=== PATIENT | male | born 1985 | race Two or more races ===

== ENCOUNTER 2018-04-13 20:09 | Inpatient (IN) | payer SELFPAY ==
[~2018-04-13] VITALS: Ht 172.7 cm; Wt 66.8 kg
[2018-04-13 20:53] LABS: BILIRUBIN,URINE NEGATIVE (NEG); CLARITY,URINE CLEAR; COLOR,URINE YELLOW; NITRITE,URINE NEGATIVE (NEG); PROTEIN,URINE NEGATIVE (NEG-TRACE)
[2018-04-13 20:54] LABS: BASO % 0 % (0-3); EOS # 0.1 x10^3/uL (0.0-0.7); EOS % 2 % (0-3); HEMATOCRIT 45.2 % (39.0-53.0); HEMOGLOBIN 15.4 g/dL (13.0-17.5); LYMPH # 2.1 x10^3/uL (1.0-4.8); LYMPH % 36 % (24-48); MEAN CORPUSCULAR HEMOGLOBIN 29 pg (25-35); MEAN CORPUSCULAR HGB CONC 34 g/dL (31-37); MEAN CORPUSCULAR VOLUME 84 fL (79-100); MONO % 1 % (0-9); NEUT # 3.6 x10^3uL (1.8-7.7); NEUT % 62 % (31-73); PLATELET COUNT 234 x10^3/uL (140-400); RED BLOOD COUNT 5.36 x10^6/uL (4.30-5.70); RED CELL DISTRIBUTION WIDTH 14.5 % (11.5-14.5); WHITE BLOOD COUNT 5.8 x10^3/uL (4.0-11.0)
[2018-04-13 20:59] LABS: CALCIUM 9.6 mg/dL (8.5-10.1); GFR 86.6; POTASSIUM 4.1 mmol/L (3.5-5.1)
[2018-04-13] MEDS ORDERED: IV NORMAL SALINE 1000ML BAG 1,000 ML IV ONE (21:00)
--- NOTE | 2018-04-13 21:00 | PHYS DOC ---
Past Medical History Past Medical History: No Pertinent History Alcohol Use: Occasionally Drug Use: None Adult General Chief Complaint Chief Complaint: ABDOMINAL PAIN HPI HPI 33-year-old male presents to ER via POV with complaints of lower abdominal pain which started today around 3 PM. Pt speaks primarily Italian- discussed use of translation phone and he is wanting family at bedside to translate. Pt reports his pain has been gradually worsening and approx. 40 min. FANCY SEWER to ER he took 3 aleve tabs as pain increased. Pt denies N/V/D or fever. He reports he felt he had difficulty urinating earlier- but on arrival was able to urinate. Pt denies hematuria/dysuria. Pt denies testicular/scrotal pain/swelling or penile pain/ discharge. Pt reports he was in [place] 2 wks ago and had similar lower abd pain which lasted for short time. Pt reports he has been having reg. BMs. Review of Systems Review of Systems Constitutional: Denies fever or chills [] Respiratory: Denies cough or shortness of breath [] Cardiovascular: No additional information not addressed in HPI [] GI: Denies nausea, vomiting, bloody stools or diarrhea. Reports lower abd pain into rt lower abd : Denies dysuria or hematuria. Reports felt it was difficult to start urine flow Musculoskeletal: Denies back pain or joint pain [] Integument: Denies rash, swelling, or skin lesions [] Neurologic: Denies headache, focal weakness or sensory changes [] All other systems were reviewed and found to be within normal limits, except as documented in this note. Current Medications Current Medications Current Medications Medications (Trade) Dose Ordered Sig/Chinmay Start Time Stop Time Status Last Admin Dose Admin Info (CONTRAST GIVEN -- Rx MONITORING) 1 each PRN DAILY PRN 04/13/18 21:45 04/15/18 13:09 DC Iohexol (Omnipaque 300 Mg/ml) 75 ml 1X ONCE 04/13/18 21:45 04/13/18 21:46 DC 04/13/18 21:45 75 ML Sodium Chloride 1,000 ml @ 1,000 mls/hr 1X ONCE 04/13/18 21:00 04/13/18 21:59 DC 04/13/18 21:00 1,000 MLS/HR Allergies Allergies Allergies Coded Allergies Type Severity Reaction Last Updated Verified No Known Drug Allergies 04/13/18 No Physical Exam Physical Exam Constitutional: Well developed, well nourished, no acute distress, non-toxic appearance. [] HENT: Normocephalic, atraumatic, bilateral ears normal, oropharynx moist, no oral exudates, nose normal. [] Eyes: PERRLA, conjunctiva normal, no discharge. [] Neck: Normal range of motion, no tenderness, supple Cardiovascular:Heart rate regular rhythm, no murmur [] Lungs & Thorax: Bilateral breath sounds clear to auscultation. Resp. equal/ nonlabored Abdomen: Bowel sounds normal, soft, tender to palp. mid lower abd into RLQ- + rebound tenderness, no masses, no pulsatile masses. [] Skin: Warm, dry, no erythema, no rash. [] Back: No tenderness, no CVA tenderness. [] Extremities: No tenderness, no cyanosis, no clubbing, ROM intact, no edema. [] Neurologic: Alert and oriented X 3, normal motor function, normal sensory function, no focal deficits noted. [] Psychologic: Affect normal, judgement normal, mood normal. [] Current Patient Data Vital Signs Vital Signs Date Time Temp Pulse Resp B/P (MAP) Pulse Ox O2 Delivery O2 Flow Rate FiO2 04/13/18 20:52 98.5 72 150/92 (111) 100 98.5 Lab Values Laboratory Tests Test 04/13/18 20:20 04/13/18 20:25 White Blood Count 5.8 x10^3/uL (4.0-11.0) Red Blood Count 5.36 x10^6/uL (4.30-5.70) Hemoglobin 15.4 g/dL (13.0-17.5) Hematocrit 45.2 % (39.0-53.0) Mean Corpuscular Volume 84 fL (79-100) Mean Corpuscular Hemoglobin 29 pg (25-35) Mean Corpuscular Hemoglobin Concent 34 g/dL (31-37) Red Cell Distribution Width 14.5 % (11.5-14.5) Platelet Count 234 x10^3/uL (140-400) Neutrophils (%) (Auto) 62 % (31-73) Lymphocytes (%) (Auto) 36 % (24-48) Monocytes (%) (Auto) 1 % (0-9) Eosinophils (%) (Auto) 2 % (0-3) Basophils (%) (Auto) 0 % (0-3) Neutrophils # (Auto) 3.6 x10^3uL (1.8-7.7) Lymphocytes # (Auto) 2.1 x10^3/uL (1.0-4.8) Monocytes # (Auto) 0.0 x10^3/uL (0.0-1.1) Eosinophils # (Auto) 0.1 x10^3/uL (0.0-0.7) Basophils # (Auto) 0.0 x10^3/uL (0.0-0.2) Sodium Level 142 mmol/L (136-145) Potassium Level 4.1 mmol/L (3.5-5.1) Chloride Level 103 mmol/L (98-107) Carbon Dioxide Level 29 mmol/L (21-32) Anion Gap 10 (6-14) Blood Urea Nitrogen 17 mg/dL (8-26) Creatinine 1.0 mg/dL (0.7-1.3) Estimated GFR (Cockcroft-Gault) 86.6 BUN/Creatinine Ratio 17 (6-20) Glucose Level 94 mg/dL (70-99) Lactic Acid Level 1.8 mmol/L (0.4-2.0) Calcium Level 9.6 mg/dL (8.5-10.1) Total Bilirubin 0.4 mg/dL (0.2-1.0) Aspartate Amino Transferase (AST) 20 U/L (15-37) Alanine Aminotransferase (ALT) 52 U/L (16-63) Alkaline Phosphatase 92 U/L (46-116) Total Protein 8.1 g/dL (6.4-8.2) Albumin 4.4 g/dL (3.4-5.0) Albumin/Globulin Ratio 1.2 (1.0-1.7) Lipase 213 U/L (73-393) Urine Collection Type Clean catch Urine Color Yellow Urine Clarity Clear Urine pH 6.0 Urine Specific [place] 1.025 Urine Protein Negative mg/dL (NEG-TRACE) Urine Glucose (UA) Negative mg/dL (NEG) Urine Ketones (Stick) Negative mg/dL (NEG) Urine Blood Negative (NEG) Urine Nitrite Negative (NEG) Urine Bilirubin Negative (NEG) Urine Urobilinogen Dipstick 1.0 mg/dL (0.2 mg/dL) Urine Leukocyte Esterase Negative (NEG) Urine RBC 0 /HPF (0-2) Urine WBC 0 /HPF (0-4) Urine Squamous Epithelial Cells Occ /LPF Urine Bacteria 0 /HPF (0-FEW) Urine Mucus Marked /LPF Laboratory Tests 04/13/18 20:20 Laboratory Tests 04/13/18 20:20 EKG EKG [] Radiology/Procedures Radiology/Procedures PROCEDURE: CT ABD PELV W/ IV CONTRST ONLY CT study of the abdomen and pelvis with contrast Clinical indications: Lower abdominal pain for 2 weeks. TECHNIQUE: After IV infusion of 75 cc of Omnipaque 300, helical CT scanning of abdomen and pelvis was performed. No GI contrast was administered. This may decrease the sensitivity to detect GI tract pathology. PQRS compliance Statement One or more of the following individualized dose reduction techniques were utilized for this study: 1. Automated exposure control 2. Adjustment of the mA and/or kV according to patient size 3. Use of iterative reconstruction technique COMPARISON: None available. FINDINGS: The liver and spleen and pancreas are normal. Small radiopaque gallstones are seen. No gallbladder wall thickening is evident. No extra hepatic biliary ductal dilatation is seen. No adrenal mass is evident. Both kidneys are normal. No focal aneurysmal dilatation of the abdominal aorta is seen. No enlarged abdominal or pelvic lymphadenopathy is evident. Urinary bladder wall is smooth. Sigmoid diverticulosis is seen without diverticulitis. The appendix is mildly thickened and no air is seen within the lumen. The appendix measures 8 mm in thickness. There is mild periappendiceal inflammation present. Findings are consistent with mild appendicitis. The terminal ileum is unremarkable. No free fluid or abscess or free air is evident. No lung base consolidation is evident. No osteolytic process is seen. IMPRESSION: Mild appendicitis. No free fluid or abscess or free air or bowel obstruction is evident. Cholelithiasis. Electronically signed by: Hebert Miller MD (04/13/2018 11:00 PM) [facility] DICTATED and SIGNED BY: HEBERT MILLER MD DATE: 04/13/18 2368 Course & Med Decision Making Course & Med Decision Making Pertinent Labs and Imaging studies reviewed. (See chart for details) 2320: Spoke with Dr. Doe, Gen. Surg and discussed pt's case- will admit to his services and give dose of IV Zosyn while in ER. Pt's WBCs NL at 5.8 with no left shift- other labs unremarkable. CT abd/pelvis reporting mild appendicitis without free fld/abscess noted. Discussed test results with pt and his family- pt has continued to prefer no pain medication as pain has been tolerable. Pt remains nontoxic in appearance and in no visible distress. He reports last eating at 6 p.m. Discussed admission and plans for IV antibiotic- pt agreeable with plan. Dragon Disclaimer Dragon Disclaimer This electronic medical record was generated, in whole or in part, using a voice recognition dictation system. Departure Departure Impression: Primary Impression: Acute appendicitis Disposition: ADMITTED INPATIENT Admitting Physician: Other (Dr. Doe, Gen Surgery) Condition: STABLE Referrals: NO PCP (PCP) Scripts Oxycodone Hcl/Acetaminophen (OXYCODONE-ACETAMINOPHEN 5-325) 1 Each Tablet 1 TAB PO PRN Q4HRS PRN for MILD PAIN, 1ST CHOICE, #30 TAB 0 Refills Prov: UMU RODRIGEZ APRN 04/15/18 FIOR FERNANDEZ APRN Apr 13, 2018 21:00
[2018-04-13 21:02] LABS: BACTERIA,URINE 0 /HPF (0-FEW); RBC,URINE 0 /HPF (0-2); SQUAMOUS EPITHELIAL CELL,UR OCC /LPF; WBC,URINE 0 /HPF (0-4)
[2018-04-13 21:05] LABS: ALBUMIN 4.4 g/dL (3.4-5.0); ALBUMIN/GLOBULIN RATIO 1.2 (1.0-1.7); TOTAL BILIRUBIN 0.4 mg/dL (0.2-1.0); TOTAL PROTEIN 8.1 g/dL (6.4-8.2)
[2018-04-13] MEDS ORDERED: IOHEXOL 300 MG/ML 100ML VIAL. IV ONE (21:45)
[2018-04-13] MEDS ORDERED: CONTRAST GIVEN. MC PRN (21:45)
--- NOTE | 2018-04-13 23:03 | RAD ---
CT study of the abdomen and pelvis with contrast Clinical indications: Lower abdominal pain for 2 weeks. TECHNIQUE: After IV infusion of 75 cc of Omnipaque 300, helical CT scanning of abdomen and pelvis was performed. No GI contrast was administered. This may decrease the sensitivity to detect GI tract pathology. PQRS compliance Statement One or more of the following individualized dose reduction techniques were utilized for this study: 1. Automated exposure control 2. Adjustment of the mA and/or kV according to patient size 3. Use of iterative reconstruction technique COMPARISON: None available. FINDINGS: The liver and spleen and pancreas are normal. Small radiopaque gallstones are seen. No gallbladder wall thickening is evident. No extra hepatic biliary ductal dilatation is seen. No adrenal mass is evident. Both kidneys are normal. No focal aneurysmal dilatation of the abdominal aorta is seen. No enlarged abdominal or pelvic lymphadenopathy is evident. Urinary bladder wall is smooth. Sigmoid diverticulosis is seen without diverticulitis. The appendix is mildly thickened and no air is seen within the lumen. The appendix measures 8 mm in thickness. There is mild periappendiceal inflammation present. Findings are consistent with mild appendicitis. The terminal ileum is unremarkable. No free fluid or abscess or free air is evident. No lung base consolidation is evident. No osteolytic process is seen. IMPRESSION: Mild appendicitis. No free fluid or abscess or free air or bowel obstruction is evident. Cholelithiasis. Electronically signed by: Fabian Miller MD (04/13/2018 11:00 PM) [facility]
[2018-04-13] MEDS ORDERED: PIPERACILLIN/TAZOBACTAM 3.375 GM in IV NORMAL SALINE 50ML 50 ML IV ONE (23:30)
[2018-04-14] VITALS (7 sets, daily range): BP systolic 107–127; BP diastolic 61–82
[2018-04-14] MEDS ORDERED: OMEP20CA9 PO (01:36)
[2018-04-14] MEDS ORDERED: BUPIVAC MPF-EPI 0.5%-1:200000 30 ML VIAL. ONE (06:21)
[2018-04-14] MEDS ORDERED: IV RINGERS,LACTATED 1000ML 1,000 ML IV SCH (07:20)
[2018-04-14] MEDS ORDERED: LIDOCAINE 1% PF 2 ML VIAL. ID PRN (07:30)
[2018-04-14] MEDS ORDERED: HYDROmorphone 2 MG/ML VIAL IV PRN (07:30)
[2018-04-14] MEDS ORDERED: MORPHINE SULFATE 2 MG/ML VIAL. IV PRN ×2 (07:30→09:15)
[2018-04-14] MEDS ORDERED: fentaNYL PF VIAL 100 MCG/2 ML VIAL IV PRN ×2 (07:30)
[2018-04-14] MEDS ORDERED: PROCHLORPERAZINE 10 MG/2 ML VIAL. IV PRN (07:30)
[2018-04-14] MEDS ORDERED: ONDANSETRON PF 4 MG/2 ML VIAL. IV PRN ×2 (07:30→09:15)
--- NOTE | 2018-04-14 07:51 | PDOC1 ---
UMU RODRIGEZ DISK SANDER 04/14/18 0751: History and Physical Date of Admission Date of Admission DATE: 04/14/18 TIME: 07:47 Identification/Chief Complaint Chief Complaint rlq pain Source Source: Chart review, Patient History of Present Illness History of Present Illness Mainly brit[place] islander speaking, family interprets for patient. RLQ pain since yesterday. No diarrhea, constipation, fever or chills. Some aggravation with movement. No previous symptoms in past. Past Medical History GI: GERD Past Surgical History Past Surgical History: No pertinent history Family History Family History: No Significant Social History Smoke: Quit (5 months ago) ALCOHOL: occassional Drugs: None Current Problem List Problem List Problems Medical Problems: (1) Acute appendicitis Status: Acute Current Medications Current Medications Current Medications Sodium Chloride 1,000 ml @ 1,000 mls/hr 1X ONCE IV Last administered on at 21:00; Start 04/13/18 at 21:00; Stop 04/13/18 at 21:59; Status DC Iohexol (Omnipaque 300 Mg/ml) 75 ml 1X ONCE IV Last administered on 04/13/18at 21:45; Start 04/13/18 at 21:45; Stop 04/13/18 at 21:46; Status DC Info (CONTRAST GIVEN -- Rx MONITORING) 1 each PRN DAILY PRN MC SEE COMMENTS; Start 04/13/18 at 21:45; Stop 04/15/18 at 21:44 Piperacillin Sod/ Tazobactam Sod 3.375 gm/Sodium Chloride 50 ml @ 100 mls/hr 1X ONCE IV Last administered on 04/13/18at 23:30; Start 04/13/18 at 23:30; Stop 04/13/18 at 23:59; Status DC Ondansetron HCl (Zofran) 4 mg PRN Q6HRS PRN IV NAUSEA/VOMITING; Start 04/14/18 at 07:30; Stop 04/15/18 at 07:29 Fentanyl Citrate (Fentanyl 2ml Vial) 25 mcg PRN Q5MIN PRN IV MILD PAIN; Start 04/14/18 at 07:30; Stop 04/15/18 at 07:29 Fentanyl Citrate (Fentanyl 2ml Vial) 50 mcg PRN Q5MIN PRN IV MODERATE TO SEVERE PAIN; Start 04/14/18 at 07:30; Stop 04/15/18 at 07:29 Morphine Sulfate (Morphine Sulfate) 1 mg PRN Q10MIN PRN IV SEVERE PAIN; Start 04/14/18 at 07:30; Stop 04/15/18 at 07:29 Ringer's Solution 1,000 ml @ 30 mls/hr Q24H IV ; Start 04/14/18 at 07:20; Stop 04/14/18 at 19:19 Lidocaine HCl (Xylocaine-Mpf 1% 2ml Vial) 2 ml PRN 1X PRN ID PRIOR TO IV START ; Start 04/14/18 at 07:30; Stop 04/15/18 at 07:29 Hydromorphone HCl (Dilaudid) 0.5 mg PRN Q10MIN PRN IV SEV PAIN, Second choice; Start 04/14/18 at 07:30; Stop 04/15/18 at 07:29 Prochlorperazine Edisylate (Compazine) 5 mg PACU PRN PRN IV NAUSEA, MRX1; Start 04/14/18 at 07:30; Stop 04/15/18 at 07:29 Bupivacaine HCl/ Epinephrine Bitart (Sensorcain-Mpf Epi 0.5%-1:[id number]) 30 ml STK -MED ONCE .ROUTE ; Start 04/14/18 at 06:21; Stop 04/14/18 at 07:22; Status DC Active Scripts Active Reported Omeprazole 20 Mg Capsule. 1 Cap PO DAILY Allergies Allergies: Coded Allergies: No Known Drug Allergies (Unverified , 04/13/18) ROS General: No: Chills, Other (fevers ) PSYCHOLOGICAL ROS: No: Anxiety, Depression Eyes: No Blurry vision, No Double vision HEENT: No: Heacaches, Sore Throat Hematological and Lymphatic: No: Bleeding Problems, Blood Clots Respiratory: No: Cough, SOB with excertion Cardiovascular: No Chest Pain, No Palpitations Gastrointestinal: Yes Other (drr hpi) Genitourinary: YES Dysuria; No Hematuria Musculoskeletal: No Joint Pain, No Muscle Pain Neurological: No Confusion, No Numbness/Tingling Skin: No Pruritus, No Rash Physical Exam General: Alert, Oriented X3, Cooperative, No acute distress HEENT: PERRLA Lungs: Clear to auscultation, Normal air movement Cardiovascular: S1, S2 Abdomen: Soft, Other (RLQ TTP, no guarding or rebound ) Extremities: No clubbing, No cyanosis Skin: No rashes, No breakdown Neuro: Normal gait, Normal speech Psych/Mental Status: Mental status NL, Mood NL Vitals Vitals Vital Signs Date Time Temp Pulse Resp B/P (MAP) Pulse Ox O2 Delivery O2 Flow Rate FiO2 04/14/18 07:29 97 75 18 123/69 97 Room Air 97.0 Labs Labs Laboratory Tests Test 04/13/18 20:20 04/13/18 20:25 White Blood Count 5.8 x10^3/uL (4.0-11.0) Red Blood Count 5.36 x10^6/uL (4.30-5.70) Hemoglobin 15.4 g/dL (13.0-17.5) Hematocrit 45.2 % (39.0-53.0) Mean Corpuscular Volume 84 fL (79-100) Mean Corpuscular Hemoglobin 29 pg (25-35) Mean Corpuscular Hemoglobin Concent 34 g/dL (31-37) Red Cell Distribution Width 14.5 % (11.5-14.5) Platelet Count 234 x10^3/uL (140-400) Neutrophils (%) (Auto) 62 % (31-73) Lymphocytes (%) (Auto) 36 % (24-48) Monocytes (%) (Auto) 1 % (0-9) Eosinophils (%) (Auto) 2 % (0-3) Basophils (%) (Auto) 0 % (0-3) Neutrophils # (Auto) 3.6 x10^3uL (1.8-7.7) Lymphocytes # (Auto) 2.1 x10^3/uL (1.0-4.8) Monocytes # (Auto) 0.0 x10^3/uL (0.0-1.1) Eosinophils # (Auto) 0.1 x10^3/uL (0.0-0.7) Basophils # (Auto) 0.0 x10^3/uL (0.0-0.2) Sodium Level 142 mmol/L (136-145) Potassium Level 4.1 mmol/L (3.5-5.1) Chloride Level 103 mmol/L (98-107) Carbon Dioxide Level 29 mmol/L (21-32) Anion Gap 10 (6-14) Blood Urea Nitrogen 17 mg/dL (8-26) Creatinine 1.0 mg/dL (0.7-1.3) Estimated GFR (Cockcroft-Gault) 86.6 BUN/Creatinine Ratio 17 (6-20) Glucose Level 94 mg/dL (70-99) Lactic Acid Level 1.8 mmol/L (0.4-2.0) Calcium Level 9.6 mg/dL (8.5-10.1) Total Bilirubin 0.4 mg/dL (0.2-1.0) Aspartate Amino Transf (AST/SGOT) 20 U/L (15-37) Alanine Aminotransferase (ALT/SGPT) 52 U/L (16-63) Alkaline Phosphatase 92 U/L (46-116) Total Protein 8.1 g/dL (6.4-8.2) Albumin 4.4 g/dL (3.4-5.0) Albumin/Globulin Ratio 1.2 (1.0-1.7) Lipase 213 U/L (73-393) Urine Collection Type Clean catch Urine Color Yellow Urine Clarity Clear Urine pH 6.0 Urine Specific [place] 1.025 Urine Protein Negative mg/dL (NEG-TRACE) Urine Glucose (UA) Negative mg/dL (NEG) Urine Ketones (Stick) Negative mg/dL (NEG) Urine Blood Negative (NEG) Urine Nitrite Negative (NEG) Urine Bilirubin Negative (NEG) Urine Urobilinogen Dipstick 1.0 mg/dL (0.2 mg/dL) Urine Leukocyte Esterase Negative (NEG) Urine RBC 0 /HPF (0-2) Urine WBC 0 /HPF (0-4) Urine Squamous Epithelial Cells Occ /LPF Urine Bacteria 0 /HPF (0-FEW) Urine Mucus Marked /LPF Laboratory Tests Test 04/13/18 20:20 04/13/18 20:25 White Blood Count 5.8 x10^3/uL (4.0-11.0) Red Blood Count 5.36 x10^6/uL (4.30-5.70) Hemoglobin 15.4 g/dL (13.0-17.5) Hematocrit 45.2 % (39.0-53.0) Mean Corpuscular Volume 84 fL (79-100) Mean Corpuscular Hemoglobin 29 pg (25-35) Mean Corpuscular Hemoglobin Concent 34 g/dL (31-37) Red Cell Distribution Width 14.5 % (11.5-14.5) Platelet Count 234 x10^3/uL (140-400) Neutrophils (%) (Auto) 62 % (31-73) Lymphocytes (%) (Auto) 36 % (24-48) Monocytes (%) (Auto) 1 % (0-9) Eosinophils (%) (Auto) 2 % (0-3) Basophils (%) (Auto) 0 % (0-3) Neutrophils # (Auto) 3.6 x10^3uL (1.8-7.7) Lymphocytes # (Auto) 2.1 x10^3/uL (1.0-4.8) Monocytes # (Auto) 0.0 x10^3/uL (0.0-1.1) Eosinophils # (Auto) 0.1 x10^3/uL (0.0-0.7) Basophils # (Auto) 0.0 x10^3/uL (0.0-0.2) Sodium Level 142 mmol/L (136-145) Potassium Level 4.1 mmol/L (3.5-5.1) Chloride Level 103 mmol/L (98-107) Carbon Dioxide Level 29 mmol/L (21-32) Anion Gap 10 (6-14) Blood Urea Nitrogen 17 mg/dL (8-26) Creatinine 1.0 mg/dL (0.7-1.3) Estimated GFR (Cockcroft-Gault) 86.6 BUN/Creatinine Ratio 17 (6-20) Glucose Level 94 mg/dL (70-99) Lactic Acid Level 1.8 mmol/L (0.4-2.0) Calcium Level 9.6 mg/dL (8.5-10.1) Total Bilirubin 0.4 mg/dL (0.2-1.0) Aspartate Amino Transf (AST/SGOT) 20 U/L (15-37) Alanine Aminotransferase (ALT/SGPT) 52 U/L (16-63) Alkaline Phosphatase 92 U/L (46-116) Total Protein 8.1 g/dL (6.4-8.2) Albumin 4.4 g/dL (3.4-5.0) Albumin/Globulin Ratio 1.2 (1.0-1.7) Lipase 213 U/L (73-393) Urine Collection Type Clean catch Urine Color Yellow Urine Clarity Clear Urine pH 6.0 Urine Specific [place] 1.025 Urine Protein Negative mg/dL (NEG-TRACE) Urine Glucose (UA) Negative mg/dL (NEG) Urine Ketones (Stick) Negative mg/dL (NEG) Urine Blood Negative (NEG) Urine Nitrite Negative (NEG) Urine Bilirubin Negative (NEG) Urine Urobilinogen Dipstick 1.0 mg/dL (0.2 mg/dL) Urine Leukocyte Esterase Negative (NEG) Urine RBC 0 /HPF (0-2) Urine WBC 0 /HPF (0-4) Urine Squamous Epithelial Cells Occ /LPF Urine Bacteria 0 /HPF (0-FEW) Urine Mucus Marked /LPF VTE Prophylaxis Ordered VTE Prophylaxis Devices: Yes VTE Pharmacological Prophylaxi: Contraindicated Assessment/Plan Assessment/Plan acute appendicitis plan for lap CYN Cedeno MD 04/14/18 0813: History and Physical VTE Prophylaxis Ordered VTE Prophylaxis Devices: Yes VTE Pharmacological Prophylaxi: Contraindicated Assessment/Plan Assessment/Plan Patient seen and examined by me complains of right lower quadrant abdominal pain for 48 hours denies any nausea or vomiting. Abdomen is soft nondistended tender to palpation right lower quadrant CT scan shows signs consistent with acute appendicitis. I am laparoscopic appendectomy agree with Germaine assessment and plan UMU RODRIGEZ APRN Apr 14, 2018 07:51 CYN LUCAS MD Apr 14, 2018 08:13
[2018-04-14] MEDS ORDERED: cefOXitin SODIUM 2 GM in IV DEXTROSE 5% 100ML 100 ML IV PRN (08:00)
[2018-04-14] MEDS ORDERED: DEXAMETHASONE SOD PHOS 20 MG/5 ML VIAL. ONE (08:01)
[2018-04-14] MEDS ORDERED: SUCCINYLCHOLINE 200 MG/10 ML VIAL. ONE (08:01)
[2018-04-14] MEDS ORDERED: PROPOFOL 20 ML IV ONE (08:01)
[2018-04-14] MEDS ORDERED: ROCURONIUM 50 MG/5 ML VIAL. ONE (08:01)
[2018-04-14] MEDS ORDERED: ONDANSETRON PF 4 MG/2 ML VIAL. ONE (08:01)
[2018-04-14] MEDS ORDERED: fentaNYL PF VIAL 100 MCG/2 ML VIAL ONE ×2 (08:12→08:29)
[2018-04-14] MEDS ORDERED: GLYCOPYRROLATE 1 MG/5 ML VIAL. ONE (08:36)
[2018-04-14] MEDS ORDERED: NEOSTIGMINE METHYLSULFATE 5 MG/5 ML SYRINGE. ONE (08:36)
[2018-04-14] MEDS ORDERED: DESFLURANE 31 TO 60 MINUTES IH ONE (08:53)
--- NOTE | 2018-04-14 09:06 | PDOC4 ---
Operative Note Operative Note Date: 04/14/2018 Preoperative diagnosis: Acute appendicitis Postoperative diagnosis: Same Procedure: Laparoscopic appendectomy Surgeon: Nader Specimen: Appendix Dictation: Patient is a 33-year-old male is had 24 hour history of right lower quadrant abdominal pain and a CT scan showing signs consistent with acute appendicitis. The procedure of laparoscopic appendectomy was explained to the patient detail was benefits were also discussed including bleeding infection injury to intra-abdominal contents possibly necessitating further or open operations alternatives to this procedure also discussed with the patient who seemed understanding gave both verbal and written consent had procedure performed. Patient was taken to the operating room placed supine position general anesthesia was initiated once patient was asleep and intubated his abdomen was prepped and draped usual sterile fashion using ChloraPrep and area around the umbilicus was injected with quarter percent Marcaine with epinephrine incisions made lead blade scalpel varies needle was placed within the abdomen creating a pneumoperitoneum once this complete a 12 mm port was placed and a 5 mm was placed within the abdomen which was inspected no other at maladies were noted was noted the appendix was mildly inflamed. A 5 mm port was placed under direct realization the right upper quadrant and a second 5 mm port was placed in the lower midline abdomen. The appendix was grasped retracted towards anterior abdominal wall a window was propagated the mesoappendix with a [place] dissector a Endo HECTOR stapler was used to staple and transect the base the appendix a second staple load was used to staple and transect the mesoappendix the appendix was placed in Endo Catch bag and removed from the umbilicus the right lower quadrant pelvis were irrigated and suctioned dry hemostasis didn't be appropriate at that point and the pneumoperitoneum was reduced all ports removed fascial defect at the umbilicus closed figure-of- eight 0 Vicryl suture and the skin was approximated all port sites 4-0 subcuticular Monocryl Mastisol Steri-Strips and Band-Aids were applied as dressings. Patient was waken next made in the operating room taken recovery in stable condition all sponge instrument needle counts listed as correct. Estimate blood loss 10 mL CYN LUCAS MD Apr 14, 2018 09:06
[2018-04-14] MEDS: IV DEXTROSE 5%-LACT RINGERS 1,000 ML IV SCH ×3 (09:07→22:27)
[2018-04-14] MEDS ORDERED: 0.9 % SODIUM CHLORIDE 10 ML DISP.SYRIN. IV PRN (09:15)
[2018-04-14] MEDS ORDERED: oxyCODONE/APAP 5/325 1 TAB TABLET PO PRN ×2 (09:15)
[2018-04-14] MEDS: KETOROLAC 15 MG/ML VIAL. IV SCH ×2 (12:23→17:59)
[2018-04-14] MEDS: cefOXitin SODIUM 1 GM in IV DEXTROSE 5% 50 ML IV SCH (16:00)
[2018-04-15] MEDS: cefOXitin SODIUM 1 GM in IV DEXTROSE 5% 50 ML IV SCH ×2 (00:54→08:24)
[2018-04-15] MEDS: KETOROLAC 15 MG/ML VIAL. IV SCH ×3 (00:54→12:41)
[2018-04-15 03:00] VITALS: BP 111/72
[2018-04-15 04:17] LABS: BASO % 0 % (0-3); EOS % 0 % (0-3); HEMATOCRIT 37.7 % (39.0-53.0); HEMOGLOBIN 12.8 g/dL (13.0-17.5); LYMPH # 1.4 x10^3/uL (1.0-4.8); LYMPH % 18 % (24-48); MEAN CORPUSCULAR HEMOGLOBIN 29 pg (25-35); MEAN CORPUSCULAR HGB CONC 34 g/dL (31-37); MEAN CORPUSCULAR VOLUME 84 fL (79-100); MONO # 0.7 x10^3/uL (0.0-1.1); MONO % 9 % (0-9); NEUT # 5.5 x10^3uL (1.8-7.7); NEUT % 72 % (31-73); PLATELET COUNT 202 x10^3/uL (140-400); RED BLOOD COUNT 4.48 x10^6/uL (4.30-5.70); RED CELL DISTRIBUTION WIDTH 14.5 % (11.5-14.5); WHITE BLOOD COUNT 7.6 x10^3/uL (4.0-11.0)
[2018-04-15] MEDS: IV DEXTROSE 5%-LACT RINGERS 1,000 ML IV SCH (05:47)
[2018-04-15 07:00] VITALS: BP 114/66
[2018-04-15 11:00] VITALS: BP 122/68
--- NOTE | 2018-04-15 11:53 | DISCH ---
DISCHARGE INSTRUCTIONS Condition on Discharge Condition on Discharge: Stable Activity After Discharge Activity Instructions for Disc: Activity as tolerated Other activity instructions: ok to shower Bathing Instructions: No Tub Bath until see (x 2 weeks ) Lifting Instructions after Dis: No heavy lifting, No pulling or pushing (> 20lbs) Exercise Instruction after Dis: Progress as tolerated Driving Instructions after Dis: Do not drive (while taking pain medications ) Diet after Discharge Diet after Discharge: Regular Wound Incision Care Wound/Incision Care: May get incision wet, No wound care needed Contacting the after DC Call your doctor for: Concerns you may have Follow-Up Follow up with: Dr Doe 2 weeks, call to schedule [phone] UMU RODRIGEZ APRN Apr 15, 2018 11:53
[2018-04-15] MEDS ORDERED: OXYC1TAB7 PO (11:55)
--- NOTE | 2018-04-15 11:58 | PDOC3 ---
Discharge Summary Visit Information Date of Admission: Apr 13, 2018 Date of Discharge: Apr 15, 2018 Admitting Diagnosis: acute appendicitis Final Diagnosis Problems Medical Problems: (1) Acute appendicitis Status: Acute Brief Hospital Course Allergies Allergies Coded Allergies Type Severity Reaction Last Updated Verified No Known Drug Allergies 04/13/18 No Vital Signs Vital Signs Date Time Temp Pulse Resp B/P (MAP) Pulse Ox O2 Delivery O2 Flow Rate FiO2 04/15/18 11:00 98.1 64 18 122/68 (86) 98 Room Air 98.1 04/14/18 20:10 8.0 Lab Results Laboratory Tests Test 04/13/18 20:20 04/13/18 20:25 04/15/18 03:55 White Blood Count 5.8 x10^3/uL (4.0-11.0) 7.6 x10^3/uL (4.0-11.0) Red Blood Count 5.36 x10^6/uL (4.30-5.70) 4.48 x10^6/uL (4.30-5.70) Hemoglobin 15.4 g/dL (13.0-17.5) 12.8 g/dL (13.0-17.5) Hematocrit 45.2 % (39.0-53.0) 37.7 % (39.0-53.0) Mean Corpuscular Volume 84 fL (79-100) 84 fL (79-100) Mean Corpuscular Hemoglobin 29 pg (25-35) 29 pg (25-35) Mean Corpuscular Hemoglobin Concent 34 g/dL (31-37) 34 g/dL (31-37) Red Cell Distribution Width 14.5 % (11.5-14.5) 14.5 % (11.5-14.5) Platelet Count 234 x10^3/uL (140-400) 202 x10^3/uL (140-400) Neutrophils (%) (Auto) 62 % (31-73) 72 % (31-73) Lymphocytes (%) (Auto) 36 % (24-48) 18 % (24-48) Monocytes (%) (Auto) 1 % (0-9) 9 % (0-9) Eosinophils (%) (Auto) 2 % (0-3) 0 % (0-3) Basophils (%) (Auto) 0 % (0-3) 0 % (0-3) Neutrophils # (Auto) 3.6 x10^3uL (1.8-7.7) 5.5 x10^3uL (1.8-7.7) Lymphocytes # (Auto) 2.1 x10^3/uL (1.0-4.8) 1.4 x10^3/uL (1.0-4.8) Monocytes # (Auto) 0.0 x10^3/uL (0.0-1.1) 0.7 x10^3/uL (0.0-1.1) Eosinophils # (Auto) 0.1 x10^3/uL (0.0-0.7) 0.0 x10^3/uL (0.0-0.7) Basophils # (Auto) 0.0 x10^3/uL (0.0-0.2) 0.0 x10^3/uL (0.0-0.2) Sodium Level 142 mmol/L (136-145) Potassium Level 4.1 mmol/L (3.5-5.1) Chloride Level 103 mmol/L (98-107) Carbon Dioxide Level 29 mmol/L (21-32) Anion Gap 10 (6-14) Blood Urea Nitrogen 17 mg/dL (8-26) Creatinine 1.0 mg/dL (0.7-1.3) Estimated GFR (Cockcroft-Gault) 86.6 BUN/Creatinine Ratio 17 (6-20) Glucose Level 94 mg/dL (70-99) Lactic Acid Level 1.8 mmol/L (0.4-2.0) Calcium Level 9.6 mg/dL (8.5-10.1) Total Bilirubin 0.4 mg/dL (0.2-1.0) Aspartate Amino Transf (AST/SGOT) 20 U/L (15-37) Alanine Aminotransferase (ALT/SGPT) 52 U/L (16-63) Alkaline Phosphatase 92 U/L (46-116) Total Protein 8.1 g/dL (6.4-8.2) Albumin 4.4 g/dL (3.4-5.0) Albumin/Globulin Ratio 1.2 (1.0-1.7) Lipase 213 U/L (73-393) Urine Collection Type Clean catch Urine Color Yellow Urine Clarity Clear Urine pH 6.0 Urine Specific [place] 1.025 Urine Protein Negative mg/dL (NEG-TRACE) Urine Glucose (UA) Negative mg/dL (NEG) Urine Ketones (Stick) Negative mg/dL (NEG) Urine Blood Negative (NEG) Urine Nitrite Negative (NEG) Urine Bilirubin Negative (NEG) Urine Urobilinogen Dipstick 1.0 mg/dL (0.2 mg/dL) Urine Leukocyte Esterase Negative (NEG) Urine RBC 0 /HPF (0-2) Urine WBC 0 /HPF (0-4) Urine Squamous Epithelial Cells Occ /LPF Urine Bacteria 0 /HPF (0-FEW) Urine Mucus Marked /LPF Laboratory Tests Test 04/15/18 03:55 White Blood Count 7.6 x10^3/uL (4.0-11.0) Red Blood Count 4.48 x10^6/uL (4.30-5.70) Hemoglobin 12.8 g/dL (13.0-17.5) Hematocrit 37.7 % (39.0-53.0) Mean Corpuscular Volume 84 fL (79-100) Mean Corpuscular Hemoglobin 29 pg (25-35) Mean Corpuscular Hemoglobin Concent 34 g/dL (31-37) Red Cell Distribution Width 14.5 % (11.5-14.5) Platelet Count 202 x10^3/uL (140-400) Neutrophils (%) (Auto) 72 % (31-73) Lymphocytes (%) (Auto) 18 % (24-48) Monocytes (%) (Auto) 9 % (0-9) Eosinophils (%) (Auto) 0 % (0-3) Basophils (%) (Auto) 0 % (0-3) Neutrophils # (Auto) 5.5 x10^3uL (1.8-7.7) Lymphocytes # (Auto) 1.4 x10^3/uL (1.0-4.8) Monocytes # (Auto) 0.7 x10^3/uL (0.0-1.1) Eosinophils # (Auto) 0.0 x10^3/uL (0.0-0.7) Basophils # (Auto) 0.0 x10^3/uL (0.0-0.2) Brief Hospital Course Mr. Guy is a 33 old male who presented with abdominal pain and acute appendicitis. Underwent laparoscopic appendectomy, postoperatively tolerating diet, ambulating, and ready for discharge home Discharge Information Condition at Discharge: Stable Follow Up: Weeks (2) Disposition/Orders: D/C to Home Scheduled Omeprazole (Omeprazole) 20 Mg Capsule.dr, 1 CAP PO DAILY, #30 Ref 5 (Reported) Entered as Reported by: Angelia Smith on 04/14/18135 Last Action: New Order on 04/14/18135 by Angelia Smith Scheduled PRN Oxycodone Hcl/Acetaminophen (Oxycodone-Acetaminophen 5-325) 1 Each Tablet, 1 TAB PO PRN Q4HRS PRN for MILD PAIN, 1ST CHOICE, #30 Ref 0 Prescribed by: Umu Rodrigez on 04/15/18 1155 UMU RODRIGEZ HEAD OPERATOR Apr 15, 2018 11:58
--- NOTE | 2018-04-16 09:09 | PATHOLOGY ---
[facility] Accession Number: [id number] . 01 Material submitted: . APPENDIX . 01 Clinician provided ICD-10: K37 . 01 Clinical history: . Appendicitis . 02 Diagnosis: Appendix, laparoscopic appendectomy: - Acute appendicitis with focal serosal exudate. . (PAYTON:todd; 04/15/2018) MBR/04/15/2018 . 02 Comment: There is no evidence of rupture. . (PAYTONM:todd; 04/15/2018) . 02 Electronically signed: . José Miguel Murphy MD, Pathologist NPI- [id number] . 01 Gross description: . Received in formalin, labeled "Roderickdez Félix, appendix", is an intact appendix (8.5 cm length x 0.8 cm diameter) and attached mesoappendix (8.5 x 2.4 x 1.3 cm). The proximal resection margin is closed by a linear staple line 2.0 cm with an average 0.2 cm width. The staple line is removed and the adjacent serosa is inked black. The mid serosa is covered with nation-white exudate and has no perforation. The lumen is dilated and filled with soft hemorrhagic material. There is no discrete fecalith. The wall has an average thickness of 0.[address]-appendiceal soft tissue has a yellow cut surface. Coding Tech tissue is submitted in A1. ([facility]; 04/14/2018) [facility]S . 02 Pathologist provided ICD-10: K35.80 . 02 CPT . 492864 Specimen Comment: A courtesy copy of this report has been sent to Specimen Comment: [phone], . Specimen Comment: Report sent to and Specimen Comment: A duplicate report has been generated due to demographic updates. Performed at: 01 [facility] [address], [place] [id number] MD Abdelrahman Sevilla MD Phone: [phone] Performed at: 02 [facility] [address], [place] [id number] MD José Miguel Murphy MD Phone: [phone]
== END 2018-04-15 13:00 | disposition home or self-care (01) | DRG 343 ==
LOC: ER 20:09 → 4 NORTH 23:20
PROVIDERS: ADMIT Surgery; ATTEND Surgery
PROC: 0DTJ4ZZ Resection of Appendix, Percutaneous Endoscopic Approach (ICD-10-PCS; principal; 2018-04-14 08:00)
DX: K35.80 Unspecified acute appendicitis (principal); K21.9 Gastro-esophageal reflux disease without esophagitis; K80.20 Calculus of gallbladder without cholecystitis without obstruction; Z87.891 Personal history of nicotine dependence
CPT/HCPCS: 36415; 74177; 80053; 81001; 83605; 83690; 85025; 88304; 96365; 96367; J0330; J0694; J1100; J1885; J2405; J2543; J2704; J2710; J3010; J3490; J7030; J7120; Q9967; 99285-25